=== PATIENT | male | born 2000 | race African-American/Black ===

== ENCOUNTER 2020-01-09 11:57 | Emergency (ER) | payer MEDICAID ==
[~2020-01-09] VITALS: Ht 185.4 cm; Wt 117.0 kg
--- NOTE | 2020-01-09 12:13 | NUR ---
ED Nurse Note: Pt ambulated to ed c/o headache x 2 days and chest and lower back pain "since covid started". Pt denies trauma or physical contact. pt denies runny nose, fever, flu-like symptoms. pt placed in isolatino room and has mask.
[2020-01-09 12:14] VITALS: BP 114/58
--- NOTE | 2020-01-09 12:21 | NUR ---
ED Nurse Note: pt reports smoking THC within 24 hours
[2020-01-09 12:43] LABS: BASOPHILS % (AUTO) 0.7 % (0.0-2.0); EOSINOPHILS % (AUTO) 1.3 % (0.0-3.0); HEMATOCRIT 43.6 % (42.0-52.0); HEMOGLOBIN 15.4 G/DL (14.2-18.0); LYMPHOCYTES % (AUTO) 28.4 % (20.0-45.0); MEAN CORPUSCULAR VOLUME 91 FL (80-99); MONOCYTES % (AUTO) 7.6 % (1.0-10.0); PLATELET COUNT 207 K/UL (150-450); RED BLOOD COUNT 4.77 M/UL (4.70-6.10); WHITE BLOOD COUNT 6.5 K/UL (4.8-10.8)
[2020-01-09 12:46] LABS: ANION GAP 7 mmol/L (5-15); BLOOD UREA NITROGEN 14 mg/dL (7-18); CALCIUM 9.5 MG/DL (8.5-10.1); CARBON DIOXIDE 31 MMOL/L (21-32); CHLORIDE 102 MMOL/L (98-107); CREATININE 1.3 MG/DL (0.55-1.30); POTASSIUM 4.3 MMOL/L (3.5-5.1); SODIUM 140 MMOL/L (136-145)
[2020-01-09 12:57] LABS: ALANINE AMINOTRANSFERASE 64 U/L (12-78); ALBUMIN 4.2 G/DL (3.4-5.0); ALBUMIN/GLOBULIN RATIO 1.3 (1.0-2.7); ALKALINE PHOSPHATASE 42 U/L (46-116); ASPARTATE AMINO TRANSFERASE 47 U/L (15-37)
--- NOTE | 2020-01-09 13:06 | NUR ---
ED Nurse Note: urine sent to lab
--- NOTE | 2020-01-09 13:30 | NUR ---
ED Nurse Note: Pt able to ambulate to restroom with steady gait.
--- NOTE | 2020-01-09 13:52 | Emergency Room Report ---
History of Present Illness General Chief Complaint: Headache Source: Patient Present Illness HPI This patient states that for the past 2 months he has had intermittent chest pain. He describes the pain as pressure-like and radiating to his shoulders and upper back. He denies recent illness. He denies cough or congestion. He notes that he is also had a "pressure" sensation in his head. He is requesting an MRI for his brain. He reports that he is concerned about cancer. She denies head trauma. He denies blurry vision. He denies weakness. He denies tingling or numbness. He denies cough or congestion. He denies shortness of breath. He denies fever or chills. He does smoke marijuana occasionally but does not use any other drugs. He does not smoke tobacco. He does have a history of high cholesterol. He has no family history of heart attack. He states he has not been working out as much as usual and notes that he has had more shortness of breath on exertion but thought that was likely because he was not working out. He denies abdominal pain. He has no other complaints. Allergies: Coded Allergies: No Known Allergies (Unverified , 01/09/20) COVID-19 Screening Contact w/high risk pt: No Recent Travel to affected area: No Experienced COVID-19 symptoms?: No COVID-19 Testing performed VISUAL DESIGNER: No Patient History Past Medical History: see triage record, HTN Social History: Reports: drug use - marijuana; Denies: smoking, alcohol use Reviewed Nursing Documentation: PMH: Agreed; PSxH: Agreed Nursing Documentation-PMH Past Medical History: No History, Except For Review of Systems All Other Systems: negative except mentioned in HPI Physical Exam Vital Signs Date Time Temp Pulse Resp B/P (MAP) Pulse Ox O2 Delivery O2 Flow Rate FiO2 01/09/20 12:03 98.8 74 20 114/58 (76) 99 Room Air Sp02 EP Interpretation: reviewed, normal General Appearance: no apparent distress, alert, GCS 15, non-toxic Head: normocephalic, atraumatic Eyes: bilateral eye normal inspection, bilateral eye PERRL ENT: hearing grossly normal, normal pharynx, no angioedema, normal voice Neck: full range of motion, supple/symm/no masses Respiratory: chest non-tender, lungs clear, normal breath sounds, no respiratory distress, no retraction, no accessory muscle use, speaking full sentences Cardiovascular #1: regular rate, rhythm, no edema Gastrointestinal: normal bowel sounds, non tender, soft, non-distended, no guarding, no rebound Rectal: deferred Musculoskeletal: back normal, normal range of motion, gait/station normal, non- tender Neurologic: alert, motor strength/tone normal, oriented x3, sensory intact, responsive, speech normal Psychiatric: judgement/insight normal, memory normal, mood/affect normal, no suicidal/homicidal ideation Skin: no rash, normal color Medical Decision Making Diagnostic Impression: Primary Impression: Chest pain Additional Impression: Abnormal EKG ER Course This patient complains of chest pressure and shortness of breath on exertion. It is reassuring that this patient has had a couple months of symptoms and has a negative troponin. However, I am concerned by the patient's EKG. The patient has T wave inversions and significant ST segment findings on his EKG that I cannot explain. Also my differential is a PE or aortic dissection. Aortic dissection is less likely given the patient's history and I am more concerned for PE. However, when I discussed CT a of the chest with this patient he adamantly declined. He stated that he did not want to be exposed to any type of radiation. I did educate him that I cannot rule out these conditions. He indicated understanding. I doubt large PE given how well- appearing this patient is and how long his symptoms have been going on. Given the patient's chest pain and findings on EKG however, I felt that this patient should be admitted to rule out unstable angina. The patient is admitted for further evaluation and treatment by cardiology. Laboratory Tests Test 01/09/20 12:20 01/09/20 13:00 White Blood Count 6.5 K/UL (4.8-10.8) Red Blood Count 4.77 M/UL (4.70-6.10) Hemoglobin 15.4 G/DL (14.2-18.0) Hematocrit 43.6 % (42.0-52.0) Mean Corpuscular Volume 91 FL (80-99) Mean Corpuscular Hemoglobin 32.4 PG (27.0-31.0) H Mean Corpuscular Hemoglobin Concent 35.4 G/DL (32.0-36.0) Red Cell Distribution Width 11.0 % (11.6-14.8) L Platelet Count 207 K/UL (150-450) Mean Platelet Volume 6.8 FL (6.5-10.1) Neutrophils (%) (Auto) 62.0 % (45.0-75.0) Lymphocytes (%) (Auto) 28.4 % (20.0-45.0) Monocytes (%) (Auto) 7.6 % (1.0-10.0) Eosinophils (%) (Auto) 1.3 % (0.0-3.0) Basophils (%) (Auto) 0.7 % (0.0-2.0) Sodium Level 140 MMOL/L (136-145) Potassium Level 4.3 MMOL/L (3.5-5.1) Chloride Level 102 MMOL/L (98-107) Carbon Dioxide Level 31 MMOL/L (21-32) Anion Gap 7 mmol/L (5-15) Blood Urea Nitrogen 14 mg/dL (7-18) Creatinine 1.3 MG/DL (0.55-1.30) Estimated Glomerular Filtration Rate > 60 mL/min (>60) Glucose Level 90 MG/DL (74-106) Calcium Level 9.5 MG/DL (8.5-10.1) Total Bilirubin 1.0 MG/DL (0.2-1.0) Aspartate Amino Transferase (AST) 47 U/L (15-37) H Alanine Aminotransferase (ALT) 64 U/L (12-78) Alkaline Phosphatase 42 U/L (46-116) L Troponin I 0.000 ng/mL (0.000-0.056) Total Protein 7.5 G/DL (6.4-8.2) Albumin 4.2 G/DL (3.4-5.0) Globulin 3.3 g/dL Albumin/Globulin Ratio 1.3 (1.0-2.7) Urine Opiates Screen Negative (NEGATIVE) Urine Barbiturates Screen Negative (NEGATIVE) Phencyclidine (PCP) Screen Negative (NEGATIVE) Urine Amphetamines Screen Negative (NEGATIVE) Urine Benzodiazepines Screen Negative (NEGATIVE) Urine Cocaine Screen Negative (NEGATIVE) Urine Marijuana (THC) Screen Positive (NEGATIVE) H EKG Diagnostic Results Rate: normal Rhythm: NSR ST Segments: other - T-wave inversions and NSST findings in leades III and aVF Rhythm Strip Diag. Results EP Interpretation: yes Rate: 80's Rhythm: NSR, no PVC's, no ectopy Chest X-Ray Diagnostic Results Chest X-Ray Diagnostic Results : Chest X-Ray Ordered: Yes # of Views/Limited/Complete: 1 View Indication: Chest Pain EP Interpretation: Yes Interpretation: no consolidation, no effusion, no pneumothorax, no acute cardiopulmonary disease Impression: No acute disease Electronically Signed by: Joi Conley DO Last Vital Signs Date Time Temp Pulse Resp B/P (MAP) Pulse Ox O2 Delivery O2 Flow Rate FiO2 01/09/20 12:14 98.8 87 20 114/58 99 Room Air Disposition: ADMITTED INPATIENT Condition: Stable Referrals: NON PHYSICIAN (PCP) Joi Conley DO Jan 09, 2020 13:52
[2020-01-09 13:56] VITALS: BP 119/63
--- NOTE | 2020-01-09 14:04 | NUR ---
ED Nurse Note: Pt calm and comfortable in bed. pt shows no acute signs of distress. pt is compliant and reports no pain at this time.
--- NOTE | 2020-01-09 14:17 | Diagnostic Imaging Report ---
EXAM: XR Chest, 1 View CLINICAL HISTORY: CP TECHNIQUE: Frontal view of the chest. COMPARISON: No relevant prior studies available. FINDINGS: Lungs: Unremarkable. No consolidation. Pleural space: Unremarkable. No pneumothorax. Heart: Unremarkable. No cardiomegaly. Mediastinum: Unremarkable. Bones/joints: Unremarkable. IMPRESSION: Normal chest x-ray.
[2020-01-09 16:00] VITALS: BP 119/63
[2020-01-09 17:30] VITALS: BP 119/63
--- NOTE | 2020-01-09 17:30 | NUR ---
ED Nurse Note: Patient's mother rusty yelling "I am going to call the feather sawyer on you if you dont take out his IV". Removed IV per ERMD. ERMD at bedside discussing risk and benefits x 3 regarding continuity of care. Patient mother still refused. Patient mother refused all care for patient. Patient left AMA with mother; refused to sign.
== END 2020-01-09 17:30 | disposition left against medical advice (07) ==
LOC: EMR 13:13
DX: R07.9 Chest pain, unspecified (principal); R94.31 Abnormal electrocardiogram [ECG] [EKG]; M54.6 Pain in thoracic spine; M25.512 Pain in left shoulder; M25.511 Pain in right shoulder; I10 Essential (primary) hypertension; F12.90 Cannabis use, unspecified, uncomplicated
CPT/HCPCS: 36415; 71045; 80053; 80307; 84484; 85025; 85379; 86140; 93005; Z7502; 99285